=== PATIENT | male | born 1965 | race Caucasian/White ===

== ENCOUNTER 2019-02-12 08:15 | Day surgery (SDC) | payer BC ==
[~2019-02-12 08:15] MED LIST: ACET325 PO; ALEVE220 MG PO; Advil200 M1 PO; Anti-Diarrheal2 MG PO; BACL20 PO; Bactrim Ds Tab1 EACH PO; Cipro500 MG PO; Ferosul325 MG PO; Flagyl500 MG PO; Hair, Skin & N1 EACH PO; Percocet 5-3251 EACH PO; Prednisone20 MG PO; Roxicodone5 MG PO; TECFIDERA1 EACH PO; TECFIDERA240 MG PO; TYLECOD3 PO; URSO300 PO; Valium5 MG PO; Vibramycin100 MG PO
--- NOTE | 2019-02-12 08:44 | NUR ---
History, Chart, Medications and Allergies reviewed before start of procedure. Lungs clear T/O to Auscultation. Patient confirms NPO status and agrees with scheduled surgery. Patient reports completing Chlorhexadine shower X2 prior to admission to hospital. Pre-Op teaching done. Pt verbalizes understanding.
--- NOTE | 2019-02-12 10:16 | NUR ---
INTO PACU VSS RECIEVED REPORT FROM ANNESTHESIOLOGIST AND RN. DRESSING CDI
--- NOTE | 2019-02-12 11:20 | NUR ---
PATIENT DISCHARGED WITH ALL BELONGINGS AND DISCHARGE INSTRUCTIONS. IV REMOVED. ANSWERED ALL QUESTIONS FROM AND PATIENT.
== END 2019-02-12 22:41 | disposition home or self-care (01) ==
LOC: ORSCMMR 08:15
PROVIDERS: Surgery
PROC: 05HM33Z Insertion of Infusion Device into Right Internal Jugular Vein, Percutaneous Approach (ICD-10-PCS; principal; 2019-02-12 09:15)
PROC: B5131ZA Fluoroscopy of Right Jugular Veins using Low Osmolar Contrast, Guidance (ICD-10-PCS; principal; 2019-02-12 09:15)
DX: C18.2 Malignant neoplasm of ascending colon (principal); I87.8 Other specified disorders of veins; K51.90 Ulcerative colitis, unspecified, without complications; Z79.899 Other long term (current) drug therapy
CPT/HCPCS: 77001; C1788; J0690; J1100; J1642; J2250; J2405; J2704; J3010; J7120

== ENCOUNTER → 2019-11-30 | Outpatient (CLI) | payer BC ==
[2019-11-30 17:50] LABS: BASOPHILS ABSOLUTE AUTO 0.03 K/mm3 (0.00-0.23); BASOPHILS PERCENT AUTO 0 % (0-2); EOSINOPHILS ABSOLUTE AUTO 0.05 K/mm3 (0.00-0.68); EOSINOPHILS PERCENT AUTO 1 % (0-6); Hemoglobin 14.5 g/dL (13.5-17.5); IMMATURE GRAN ABSOLUTE AUTO 0.04 K/mm3 (0.00-0.10); IMMATURE GRAN PERCENT AUTO 0 % (0-1); LYMPHOCYTES ABSOLUTE AUTO 0.71 K/mm3 (0.84-5.20); LYMPHOCYTES PERCENT AUTO 7 % (21-46); MONOCYTES PERCENT AUTO 17 % (4-13); Mean Corpuscular HGB 32.4 pg (26.0-34.0); Mean Corpuscular HGB Conc 34.5 g/dL (31.5-36.5); Mean Corpuscular Volume 94 fL (80-100); Mean Platelet Volume 10.1 fL (9.1-12.4); NEUTROPHILS ABSOLUTE AUTO 7.77 K/mm3 (1.96-9.15); NEUTROPHILS PERCENT AUTO 75 % (41-73); Platelet Count 212 K/mm3 (150-400); RDW Coefficient Variation 12.5 % (11.7-14.2); RDW Standard Deviation 43.5 fL (35.1-46.3); Red Blood Cell Count 4.48 M/mm3 (4.30-5.90)
[2019-11-30 18:02] LABS: Alanine Aminotransfer (ALT/SGP 54 U/L (12-78); Albumin, Blood 3.7 g/dL (3.4-5.0); Albumin/Globulin Ratio 0.8 (0.8-1.8); Alk Phos 126 U/L (50-136); Anion Gap 8 mmol/L (6-16); Aspartate Aminotrans (AST/SGOT 28 U/L (12-37); Bilirubin, Total 1.4 mg/dL (0.1-1.0); Blood Urea Nitrogen 18 mg/dL (8-24); Bun/Creatinine Ratio 22.9 (12.0-20.0); CO2, Blood 24 mmol/L (21-32); Calcium, Blood 9.2 mg/dL (8.5-10.1); Chloride, Blood 103 mmol/L (98-108); Creatinine, Blood 0.79 mg/dL (0.60-1.20); Globulin, Blood 4.8 g/dL (2.2-4.0); Glomerular Filtration Rate >60 (60-); Glucose, Blood 143 mg/dL (70-99); Potassium, Blood 4.1 mmol/L (3.5-5.5); Sodium, Blood 135 mmol/L (136-145); Total Protein, Blood 8.5 g/dL (6.4-8.2)
== END | disposition home or self-care (01) ==
LOC: LAB SHORT 17:36 → LAB 17:36
PROVIDERS: Physician Assistant
DX: R10.84 Generalized abdominal pain (principal)
CPT/HCPCS: 80053; 83690; 85025; 87086

== ENCOUNTER 2022-06-01 07:52 | Day surgery (SDC) | payer BC ==
[~2022-06-01] VITALS: Ht 175.3 cm; Wt 65.2 kg
--- NOTE | 2022-06-01 11:26 | NUR ---
06/01/22 1126 Ethel Bonilla 1210 FARNAZ EDWARDS CONFIRMED PLACEMENT OF ETHAN A CATH ON RIGHT CHEST AREA. PT ABLE TO DISCHARGE.
== END 2022-06-01 11:25 | disposition home or self-care (01) ==
LOC: ORSCSDS 07:52
PROVIDERS: Surgery
PROC: 05HM33Z Insertion of Infusion Device into Right Internal Jugular Vein, Percutaneous Approach (ICD-10-PCS; principal; 2022-06-01 09:30)
DX: C18.2 Malignant neoplasm of ascending colon (principal); Z79.899 Other long term (current) drug therapy
CPT/HCPCS: 77001; C1788; J0690; J1642; J2001; J2250; J2704; J2795; J3010

== ENCOUNTER 2024-02-07 10:12 | Day surgery (SDC) | payer BC ==
[~2024-02-07] VITALS: Ht 175.3 cm; Wt 73.7 kg
[~2024-02-07 10:12] MED LIST changes: +Lactated Ringer's 1,000 ML IV ONE; +propofoL 50 ML IV ONE
[2024-02-07] MEDS ORDERED: DIPATR (11:45)
[2024-02-07] MEDS ORDERED: Lactated Ringer's 1,000 ML IV ONE (12:31)
--- NOTE | 2024-02-07 13:05 | NUR ---
02/07/24 130 MIRI SIMMONS PT HAS AN INTERNAL POUCH; NO CECUM
[2024-02-07 13:58] VITALS: BP 111/75
== END 2024-02-07 13:30 | disposition home or self-care (01) ==
LOC: ORSCSDS 10:12
PROVIDERS: Internal Medicine Gastroenterology
PROC: 0DJD8ZZ Inspection of Lower Intestinal Tract, Via Natural or Artificial Opening Endoscopic (ICD-10-PCS; principal; 2024-02-07 12:00)
DX: K51.90 Ulcerative colitis, unspecified, without complications (principal); Z85.038 Personal history of other malignant neoplasm of large intestine; G35 Multiple sclerosis; Z79.899 Other long term (current) drug therapy
CPT/HCPCS: J2704; J7120